=== PATIENT | female | born 1960 | race Caucasian/White ===

== ENCOUNTER → 2017-05-14 | Outpatient (CLI) | payer BC ==
[~2017-05-14] MED LIST: CHOL200022 PO; CIP500 PO; CYAN1TAB68 PO; HYOS-24 SL; LEVO50TA80 PO; LOR5 PO; METR-160 PO; MON10 PO; MULT1TAB64 PO; OMEG300C PO; PEG4000S14 PO; PER PO; SELE200T32 PO; ZINC15TA4 PO
--- NOTE | 2017-05-15 08:25 | RADIOLOGY IMAGING REPORT ---
FACILITY: [facility] PATIENT NAME: TONY SALDIVAR : [id number] MR: [id number] V: [id number] EXAM DATE: [id number] ORDERING PHYSICIAN: MAYA CORDERO TECHNOLOGIST: Yasmeen Song PROCEDURE:BILATERAL DIGITAL SCREENING MAMMOGRAM WITH CAD ASSISTED INTERPRETATION AND 3D BREAST TOMOSYNTHESIS. COMPARISON:Prior mammograms dated 05/10/11. INDICATIONS:SCREENING. FINDINGS: Small to moderate amount of fibroglandular tissue is seen throughout the breasts. The parenchymal pattern has remained stable when allowing for difference in mammographic technique and patient positioning. There is no evidence of malignant appearing mass, malignant appearing calcification or other secondary sign of malignancy in either breast. DIAGNOSTIC CATEGORY 2--BENIGN FINDING. RECOMMENDATIONS: ROUTINE MAMMOGRAM AND CLINICAL EVALUATION. IMPRESSION: Bi-RADS 2: No significant abnormality is seen. Images were reviewed with R2CAD and 3D breast tomosynthesis. Dictated by: Mitzi Beck M.D. on 05/14/2017 at 15:58 Transcribed by: MURIEL on 05/14/2017 at 22:24 Approved by: Mitzi Beck M.D. on 05/15/2017 at 8:24 [facility]
== END ==
LOC: MAMO 01:36
PROVIDERS: ATTEND Emergency Medicine
DX: Z12.31 Encounter for screening mammogram for malignant neoplasm of breast (principal)
CPT/HCPCS: 77063; 77067

== ENCOUNTER 2017-05-29 00:43 | Day surgery (SDC) | payer BC ==
[~2017-05-29] VITALS: Ht 170.2 cm; Wt 79.4 kg
[~2017-05-29 00:43] MED LIST changes: +GLUC-198 PO
[2017-05-29] MEDS ORDERED: FAMOTIDINE 20 MG TAB PO ONE (12:30)
[2017-05-29] MEDS ORDERED: LIDOCAINE/SOD BICARB 8.4% SYR ID ONE (13:10)
[2017-05-29] MEDS ORDERED: MIDAZOLAM 2 MG/2 ML VIAL IVP ONE (13:10)
[2017-05-29] MEDS ORDERED: NORMOSOL R SOLN(*) 1000 ML BAG 1,000 ML IV PRN (13:10)
[2017-05-29 13:30] VITALS: BP 131/74
[2017-05-29 13:44] LABS: PLATELET COUNT, AUTOMATED 288 K/uL (150-450)
[2017-05-29] MEDS ORDERED: PROPOFOL EMUL(*) 10MG/ML 20 ML 40 ML ONE (14:12)
[2017-05-29] MEDS ORDERED: LIDOCAINE MPF 1% 5 ML VIAL ONE (14:12)
[2017-05-29] MEDS ORDERED: ROPIVACAINE 0.5% 20 ML VIAL ONE (14:51)
[2017-05-29] MEDS ORDERED: LIDO/EPI 1% MDV 1:100,000 20ML INFIL ONE (14:51)
[2017-05-29] MEDS ORDERED: GLYCOPYRROLATE 0.2 MG/ML SDV ONE (15:15)
[2017-05-29] MEDS ORDERED: PROPOFOL EMUL(*) 10MG/ML 20 ML 20 ML ONE (15:16)
--- NOTE | 2017-05-29 16:08 | Short(Outpt) Discharge Summary ---
Discharge Summary Reason for Hosp/Final Diag: (1) Cyst of face Status: Chronic Hospital Course & Plan: Excision of forehead nodule and colonoscopy with polypectomy x2 completed without problems. (2) Family history of malignant neoplasm of gastrointestinal tract Departure Discharge to: Home, Self Care Discharge Instructions Home Meds Active Scripts Peg 3350/Na Sulf,Bicarb,Cl/Kcl (PEG-3350 AND ELECTROLYTES SOLN) 4,000 Ml Soln.recon, 1 GAL PO ONCE, #1 GAL 0 Refills Prov:KANDACE DAVID MD 05/13/17 Levothyroxine Sodium (SYNTHROID) 50 Mcg Tablet, 50 MCG PO QDAY, #90 TAB Prov:MAYA CORDERO MD 04/24/17 Reported Medications Glucosa Gaytan 2KCL/Chondroitin Gaytan (GLUCOSAMINE & CHONDROITIN CAP) 1 Each Capsule, 1 EACH PO QDAY, CAPSULE 05/22/17 Cyanocobalamin/Folic Acid (VITAMIN U67-KOFAJ ACID TABLET) 1 Each Tablet, 1 EACH PO 01/12/15 Cholecalciferol (Vitamin D3) (VITAMIN D) 2,000 Unit Tablet, 2000 UNIT PO 01/12/15 Selenomethionine (SELENIUM) 200 Mcg Tablet, 200 MCG PO QDAY 01/12/15 Multivitamin (MULTI VITAMIN DAILY) 1 Each Tablet, 1 EACH PO 01/12/15 [place]-3 Fatty Acids (FISH OIL) 300 Mg Capsule, 300 MG PO, CAPSULE 01/12/15 Follow up Referrals: General Surgery - 06/17/17 @ Surgery, General with Kandace David Md You have a follow up appointment scheduled with Dr. David on 06/17/17, at 4:00pm. Diet: Regular Activity: As Tolerated Special Instructions: You may remove the band-aid on 05/31/17, then you can shower. After showering, leave the incision open to air but leave the steristrips in place until they fall off on their own. You can use tylenol and/or ibuprofen as needed for pain on your forehead. You can also apply ice to your forehead as needed as well. KANDACE DAVID MD May 29, 2017 16:08
--- NOTE | 2017-05-29 16:16 | Post Operative Progress Note ---
Post Operative Progress Note Date: May 29, 2017 Time: 16:08 Surgeon: Neela Dictation number: [id number] Anesthesia: LMA by Dr. Nguyen Pre-Op Diagnosis: Forehead nodule FH CRC Post-Op Diagnosis: QAMAR Colon polyps x2 Findings: 2 small polyps at hepatic flexure Excellent prep Procedure(s): Excision of nodule from forehead Colonoscopy with snare polypectomy x2 Specimen Removed:(May be N/A): 1) forehead nodule 2) hepatic flexure polyp Complications: None Fluids: See anesthesia record Estimated Blood Loss: Minimal Date OP Note Dictated: May 29, 2017 Time OP Note Dictated: 16:10 KANDACE DAVID MD May 29, 2017 16:16
--- NOTE | 2017-05-29 23:05 | OPERATIVE REPORT 1 ---
EVENT DATE: May 29, 2017 SURGEON: Eliu Keita MD ANESTHESIOLOGIST: Matt Nguyen MD ANESTHESIA: LMA. PREOPERATIVE DIAGNOSES 1. Forehead nodule. 2. Family history of colon and rectal cancer. POSTOPERATIVE DIAGNOSES 1. Forehead nodule. 2. Family history of colon and rectal cancer. 3. Hepatic flexure polyp times two. PROCEDURES PERFORMED 1. Excision of forehead nodule. 2. Colonoscopy with snare polypectomy times two. COMPLICATIONS None. CONDITION Stable. BLOOD LOSS Minimal. FINDINGS This patient's forehead nodule appeared to be a benign cyst, probably a pilar cyst. She had two small polyps in her colon at her hepatic flexure. The prep was excellent. Withdrawal time was 24 minutes. SPECIMENS 1. Forehead nodule. 2. Hepatic flexure polyp. INDICATIONS This is a 56-year-old female who was referred to my office for screening colonoscopy. Her mother of colon cancer in her 60s. The patient had a colonoscopy actually 10 years ago when she was 46 years old, and this was apparently normal. She has not had one since. She also had a nodule on her forehead that she was requesting to have removed at the same time as her colonoscopy. DESCRIPTION OF PROCEDURE The patient was brought to the operating room and placed supine on the operating table. LMA anesthesia was administered. Her forehead was prepped in sterile fashion. A timeout was completed. I anesthetized the skin around the nodule with 0.5% ropivacaine plain. I made transversely oriented incision overlying the nodule, dissected through the dermis and subcutaneous tissues, and then dissected around the nodule. I removed the nodule from the wound and passed it off the field. The wound was made hemostatic with compression and closed with interrupted 3-0 Vicryl deep dermal sutures and 4-0 Monocryl running subcuticular suture. The skin was cleaned and dried, and Steri-Strips were applied, followed by a Band-Aid. The colonoscope was then set up and tested to make sure it was completely functional. A digital rectal exam was completed which was unremarkable. The colonoscope was lubricated and inserted into her rectum through her anus. I advanced the scope with no difficulty all the way through to her cecum and also to her terminal ileum. I slowly withdrew the scope as I looked at all mucosal surfaces for any abnormalities. At the hepatic flexure, there were two polyps that were just a few centimeters apart from each other. Both of these were removed with the snare. We were able to retrieve the first one, but the second one was not retrieved. There were no other polyps throughout her colon, and her prep was excellent. I retroflexed the scope in the rectum to look at the distal rectum and proximal anal canal, and this was unremarkable. I straightened the scope out and advanced it up to her descending colon and suctioned out the carbon dioxide as I withdrew the scope. I then removed the scope from her body. The patient was then awakened, LMA removed, and she was transported to the recovery room in stable condition having tolerated the procedure without any apparent problems. CAMPOS
== END 2017-05-29 17:33 | disposition home or self-care (01) ==
LOC: OR 00:43
PROVIDERS: ATTEND Surgery
DX: Z12.11 Encounter for screening for malignant neoplasm of colon (principal); L72.12 Trichodermal cyst; D12.3 Benign neoplasm of transverse colon
CPT/HCPCS: 00811; 11442; 36415; 45385; 85025; 88305; J2001; J2704; J2795; J3490